=== PATIENT | male | born 1995 | race American Indian/Alaskan Native ===

== ENCOUNTER 2017-06-14 12:46 | Emergency (ER) | payer BC ==
[2017-06-14 12:56] VITALS: BP 119/66
[2017-06-14] MEDS ORDERED: ATROVENT IH ONE (13:09)
[2017-06-14] MEDS ORDERED: PROVENTIL IH ONE (13:09)
[2017-06-14] MEDS ORDERED: DELTASONE PO ONE (13:09)
--- NOTE | 2017-06-14 13:10 | Emergency Department Report ---
Blank Doc - Documentation Documentation: is a 22-year-old male who is presenting with asthma like symptoms for the past 2 days. Patient ran out of his nebulizer medications. Patient does have seasonal allergy type symptoms. Patient presenting with wheezing shortness of breath. Patient has diffuse wheeze but is able to speak in full sentences. Patie will be moved to a treatment room to get a nebulizer treatment. Mary
--- NOTE | 2017-06-14 13:16 | Emergency Department Report ---
HPI - General Chief Complaint: Adult Asthma Time Seen by Provider: 06/14/17 13:01 - HPI HPI: Pt is a 22-year-old male who is presenting with asthma like symptoms for the past 2 days. Patient ran out of his nebulizer medications. Patient does have seasonal allergy type symptoms. Patient presenting with wheezing shortness of breath. He denies any chest pain but reports tightness when he breathes in and this is similar with past asthma attacks.. He said he ran out of his albuterol nebulizer and also inhaler and would like refill. Denies any fever or chills. Denies any nasal congestion or runny nose. He said he had 1 ER visit over the last year without any issue of intubation. Chest tightness is 9 out of 10, feels tight and associated with breathing . She also reported that he has eczema flare up to his arms and would like to have eczema cream that does not have steroid and it because he said steroids make his skin light and thin. ED Past Medical Hx - Past Medical History Previous Medical History?: Yes Hx Asthma: Yes - Surgical History Past Surgical History?: No - Family History Family history: no significant - Social History Smoking Status: Current Every Day Smoker Substance Use Type: Alcohol, Marijuana, Prescribed - Medications Home Medications: Home Medications Medication Instructions Recorded Confirmed Last Taken Type ALBUTEROL Inhaler [ProAir HFA 2 puff IH Q4-6H PRN 1 Days #1 06/14/17 Unknown Rx Inhaler] inhalation ALBUTEROL NEB's [Proventil 0.083% 2.5 mg IH Q6H PRN #1 pack 06/14/17 Unknown Rx NEBS] Dimethicone/Colloidal Oatmeal 71 gm TP Q8H PRN #1 lotion 06/14/17 Unknown Rx [Aveeno Daily Moisturizing Lot] Tacrolimus 30 gm TP BID #1 oint...g. 06/14/17 Unknown Rx predniSONE [Deltasone] 20 mg PO QDAY 5 Days #5 tab 06/14/17 Unknown Rx ED Review of Systems ROS: Stated complaint: TESSA AFTER SMOKING Other details as noted in HPI Comment: All other systems reviewed and negative Constitutional: no symptoms reported ENT: denies: ear pain, throat pain, congestion Respiratory: cough, shortness of breath, wheezing. denies: orthopnea, SOB with exertion, SOB at rest, stridor Cardiovascular: denies: chest pain, palpitations, edema, syncope Gastrointestinal: denies: abdominal pain, nausea, vomiting, diarrhea, constipation Musculoskeletal: denies: back pain, joint swelling, arthralgia, myalgia Skin: denies: rash Neurological: denies: headache, numbness, paresthesias, confusion, abnormal gait , vertigo Physical Exam - Physical Exam Vital Signs: Vital Signs 06/14/17 12:53 Temperature 98.8 F Pulse Rate 75 Respiratory 22 Rate Blood Pressure 119/66 O2 Sat by Pulse 95 Oximetry General: This 22-year-old male well-nourished well-developed that appears to be in mild distress from asthma exacerbation. He is nontoxic in appearance Physical Exam: Head: Normocephalic atraumatic Ears:BIateral TM congested without erythema and loss of bony landmarks. [place] EAC with normal exam. No mastoid bone tenderness. Mouth: Moist, no pharyngeal erythema or exudate . No tonsillar erythema or exudate. UVULA midline and oral airways patent. No peritonsillar abscess Neck: Nontender to palpate, supple, normal range of motion. No adenopathy. No c- spine tenderness. Nose: Bilateral nasal mucosa congested with clear drainage. Maxillary and frontal sinuses non-tender to palpate. Eyes: Bilateral Sclerae and conjunctiva without injection. Bilateral pupils equal and reactive to light. Bilateral lids are normal. Normal accommodation.BEOMI Lungs: Auscultated wheezing throughout lung lofton. No rhonchi or rale. Patient with dry cough . Mild increased work of breathing.No chest wall tenderness or crepitus Extremity: No clubbing, cyanosis or edema. Positive pulses all extremities and no neurovascular compromise Abdomen: Soft, nontender to palpate in all quadrants and normal bowel sounds in all quadrants. CV: S1, S2. Regular rate and rhythm negative murmur. Capillary refill is less than 3 seconds Skin: Noted dry, scaly area to antecubital fossa appears to be eczema flare. No signs of infection Psych: Normal mood and behavior ED Course Vital Signs 06/14/17 12:53 Temperature 98.8 F Pulse Rate 75 Respiratory 22 Rate Blood Pressure 119/66 O2 Sat by Pulse 95 Oximetry - Reevaluation(s) Reevaluation #1: 06/14/17 15:09 Patient received albuterol 10 mg nebulizer, Atrovent 1 mg nebulizer and Deltasone 60 mg by mouth and upon reevaluation of lungs, patient lung sounds better with minimal wheeze in to upper lung lofton. He was refusing prednisone at first but decided to take. ED Medical Decision Making - Medical Decision Making ED course: Pt with asthma flare and complains of eczema. He was given albuterol 10 mg nebulizer and Atrovent 1 mg nebulizer. He was also given prednisone 60 g by mouth which will help his eczema and also asthma flare. Upon reevaluation of lungs, patient lung sounds are better and he said he feels better. Patient is requesting a cream for eczema that does not have steroid and it. He is also refusing prescription for prednisone. I discussed with him that he will need to take prednisone for asthma flare and he was very wheezy upon arrival to the emergency room so he accepted proximal prescription and also prescription for albuterol nebulizer and inhaler. Patient does have access to primary care but he does not have primary care physician at this time so I will refer him to [facility] and Dr. Graham who is on-call for primary care. Discharged from hospital in stable condition to follow up with primary care. Critical care attestation.: If time is entered above; I have spent that time in minutes in the direct care of this critically ill patient, excluding procedure time. ED Disposition Clinical Impression: Eczema Qualifiers: Eczema type: intrinsic Qualified Code(s): L20.84 - Intrinsic (allergic) eczema Asthma attack Qualifiers: Asthma severity: mild Asthma persistence: persistent Qualified Code(s): J45.31 - Mild persistent asthma with (acute) exacerbation Disposition: DC-01 TO HOME OR SELFCARE Is pt being admited?: No Does the pt Need Aspirin: No Condition: Stable Instructions: Asthma (ED), Eczema (ED) Additional Instructions: Please see medication as prescribed Please see primary care referrals and discharge instruction paperwork Prescriptions: ALBUTEROL Inhaler [ProAir HFA Inhaler] 2 puff IH Q4-6H PRN 1 Days #1 inhalation PRN Reason: cough/wheeezing ALBUTEROL NEB's [Proventil 0.083% NEBS] 2.5 mg IH Q6H PRN #1 pack PRN Reason: cough and wheezing Dimethicone/Colloidal Oatmeal [Aveeno Daily Moisturizing Lot] 71 gm TP Q8H PRN # 1 lotion PRN Reason: eczema predniSONE [Deltasone] 20 mg PO QDAY 5 Days #5 tab Tacrolimus 30 gm TP BID #1 oint...g. Referrals: [facility] [Outside] - 06/16/17 VALERY GRAHAM MD [Staff Physician] - 06/16/17 SATINDER GAGNON MD [Staff Physician] - 06/19/17 Forms: Work/School Release Form(ED)
== END 2017-06-14 15:29 | disposition home or self-care (01) ==
LOC: ED 12:46
DX: J45.31 Mild persistent asthma with (acute) exacerbation (principal); L20.84 Intrinsic (allergic) eczema; F17.200 Nicotine dependence, unspecified, uncomplicated; F12.10 Cannabis abuse, uncomplicated
CPT/HCPCS: 94644; J7512